=== PATIENT | male | born 1965 | race American Indian/Alaskan Native ===

== ENCOUNTER 2017-01-30 13:20 | Emergency (ER) | payer MEDICAID, OTHER ==
[2017-01-30 13:20] VITALS: BMI 25.7
[2017-01-30 13:43] VITALS: TEMP 98.3
--- NOTE | 2017-01-30 14:38 | C.PDOC ---
History Of Present Illness 51 year old male, whose past medical history includes hypertension, presents to the emergency department for a growth on the occipital scalp, which began about 3 months ago. The patient reports there is no pain, discharge, or bleeding , and he denies any trauma /injury to the area. The patient also denies headaches, fever, visual changes, dizziness, chest pain, SOB. Patient admits he was diagnosed with HTN 2 years ago, but has not taken any medications for it. Time Seen by Provider: 01/30/17 14:17 Chief Complaint (Nursing): Abnormal Skin Integrity History Per: Patient History/Exam Limitations: no limitations Onset/Duration Of Symptoms: Other (x 3 months ) Current Symptoms Are (Timing): Still Present Quality Of Symptoms: denies: Painful, Draining Severity: Mild Past Medical History Reviewed: Historical Data Vital Signs: Last Vital Signs Temp 98.3 F 01/30/17 13:40 Pulse 91 H 01/30/17 14:45 Resp 18 01/30/17 14:45 BP 162/110 H 01/30/17 15:11 Pulse Ox 97 01/30/17 16:44 - Medical History PMH: HTN Family History: States: No Known Family Hx - Social History Hx Tobacco Use: Yes Hx Alcohol Use: Yes Hx Substance Use: No - Immunization History Hx Tetanus Toxoid Vaccination: No Hx Influenza Vaccination: No Hx Pneumococcal Vaccination: No Review Of Systems Except As Marked, All Systems Reviewed And Found Negative. Constitutional: Negative for: Fever, Other (No bleeding, drainage) Eyes: Negative for: Vision Change Cardiovascular: Negative for: Chest Pain, Palpitations Respiratory: Negative for: Shortness of Breath Gastrointestinal: Negative for: Abdominal Pain Neurological: Negative for: Weakness, Numbness, Altered Mental Status, Headache , Dizziness Physical Exam - Physical Exam Appears: Well, Non-toxic, No Acute Distress Skin: Normal Color, Warm, Dry Head: Atraumatic, Normacephalic, Other (Left occipital scalp approx 3 cm lipoma ; no erythema; no discharge; no TTP) Eye(s): bilateral: Normal Inspection, PERRL, EOMI Nose: Normal Neck: Normal, Normal ROM Cardiovascular: Rhythm Regular Respiratory: Normal Breath Sounds, No Rales, No Rhonchi, No Wheezing Extremity: Normal ROM Neurological/Psych: Oriented x3, Normal Speech, Normal Cognition Gait: Steady ED Course And Treatment O2 Sat by Pulse Oximetry: 97 (RA) Pulse Ox Interpretation: Normal Progress Note: Explained to patient that this growth likely is a lipoma, and that it will need to be evaluated and removed by a surgeon. Patient given 1 dose lisinopril in the ED, and Rx for same. He was instructed to follow up with PMD/clinic in 1-2 days, and with general surgeon within 1 week. Patient instructed to return to ED if symptoms worsen. Reevaluation Time: 15:00 Reassessment Condition: Improved (Patient reassessed, is resting comfortably and BP is improving) Disposition Counseled Patient/Family Regarding: Diagnosis, Need For Followup, Rx Given - Disposition Referrals: [facility] at [facility] [Outside] Archie Ken MD [Staff Provider] - Disposition: HOME/ ROUTINE Disposition Time: 15:00 Condition: STABLE Additional Instructions: FOLLOW UP WITH MEDICAL AND SURGICAL CLINIC WITHIN 1 WEEK USE MEDICATION DAILY AVOID SALTY FOODS RETURN TO ER IF SYMPTOMS WORSEN Prescriptions: Lisinopril [Prinivil] 20 mg PO DAILY #30 tablet Instructions: Lipoma (ED), Hypertension (ED) Forms: [employer] (Polish) Print Language: PORTUGUESE - POA Present On Arrival: None - Clinical Impression Clinical Impression: Lipoma of scalp, Hypertension - Scribe Statement The provider has reviewed the documentation as recorded by the Scribbrittanie Sol All medical record entries made by the Scribe were at my direction and personally dictated by me. I have reviewed the chart and agree that the record accurately reflects my personal performance of the history, physical exam, medical decision making, and the department course for this patient. I have also personally directed, reviewed, and agree with the discharge instructions and disposition.
[2017-01-30 14:45] VITALS: PULSE 91; RESP 18
[2017-01-30 15:11] VITALS: BP 162/110
[2017-01-30 16:36] VITALS: O2SAT 97
== END 2017-01-30 15:11 | disposition home or self-care (01) ==
LOC: C.ER 13:20
DX: I10 Essential (primary) hypertension (principal); D17.0 Benign lipomatous neoplasm of skin and subcutaneous tissue of head, face and neck

== ENCOUNTER 2017-05-17 15:52 | Emergency (ER) | payer MEDICAID ==
[2017-05-17 15:53] VITALS: BMI 34.2
[2017-05-17 16:03] VITALS: TEMP 97.8
--- NOTE | 2017-05-17 16:07 | C.PDOC ---
History Of Present Illness 52 y/o male presents to ED sent from clinic for high blood pressure noted. Patient states he went to clinic for mass on back of head he has had for 1 year and for mild blurred vision. Patient denies loc, direct injury, vomiting, nausea or any other complaints at this time. Time Seen by Provider: 05/17/17 15:55 Chief Complaint (Nursing): Dizziness/Lightheaded History Per: Patient History/Exam Limitations: no limitations Onset/Duration Of Symptoms: Days Current Symptoms Are (Timing): Still Present Past Medical History Reviewed: Historical Data, Nursing Documentation, Vital Signs Vital Signs: Last Vital Signs Temp 97.8 F 05/17/17 15:58 Pulse 76 05/17/17 18:10 Resp 20 05/17/17 18:10 BP 135/94 H 05/17/17 18:10 Pulse Ox 96 05/17/17 18:10 - Medical History PMH: HTN Surgical History: No Surg Hx Family History: States: No Known Family Hx - Social History Hx Tobacco Use: Yes Hx Alcohol Use: Yes Hx Substance Use: No - Immunization History Hx Tetanus Toxoid Vaccination: No Hx Influenza Vaccination: No Hx Pneumococcal Vaccination: No Review Of Systems Constitutional: Negative for: Fever, Chills Eyes: Positive for: Vision Change Cardiovascular: Negative for: Chest Pain Respiratory: Negative for: Shortness of Breath Gastrointestinal: Negative for: Nausea, Vomiting Skin: Negative for: Rash Neurological: Positive for: Dizziness. Negative for: Weakness, Numbness Physical Exam - Physical Exam Appears: Non-toxic, No Acute Distress Skin: Normal Color, Warm, Dry, No Rash Head: Normacephalic, Other (subcutaneous mass to posterior left side of head) Eye(s): bilateral: Normal Inspection, PERRL, EOMI Oral Mucosa: Moist Neck: Normal ROM, Supple Cardiovascular: Rhythm Regular Respiratory: Normal Breath Sounds, No Rales, No Rhonchi, No Wheezing Gastrointestinal/Abdominal: Soft, No Tenderness, No Guarding, No Rebound Back: No CVA Tenderness Extremity: Normal ROM, Capillary Refill (<2 seconds) Neurological/Psych: Oriented x3, Normal Speech, Normal Motor, Normal Sensation ED Course And Treatment O2 Sat by Pulse Oximetry: 95 (RA) Pulse Ox Interpretation: Normal Disposition - Disposition Disposition: HOME/ ROUTINE Disposition Time: 18:20 Condition: IMPROVED Prescriptions: cloNIDine [Catapres] 0.2 mg PO BID #30 tab Forms: [employer] (Nicaraguan) - Clinical Impression Clinical Impression: Hypertension - Scribe Statement The provider has reviewed the documentation as recorded by the Byronibbrittanie Catherine All medical record entries made by the Scribe were at my direction and personally dictated by me. I have reviewed the chart and agree that the record accurately reflects my personal performance of the history, physical exam, medical decision making, and the department course for this patient. I have also personally directed, reviewed, and agree with the discharge instructions and disposition.
[2017-05-17 18:11] VITALS: BP 135/94; PULSE 76; RESP 20
[2017-05-17 18:21] VITALS: O2SAT 95
--- NOTE | 2017-05-18 12:20 | CARD ---
APPROVED REPORT EKG Measurement Heart [id number] <Conclusion> Normal sinus rhythm Voltage criteria for left ventricular hypertrophy Abnormal ECG
== END 2017-05-17 18:29 | disposition home or self-care (01) ==
LOC: C.ER 15:52
DX: I10 Essential (primary) hypertension (principal); Z87.891 Personal history of nicotine dependence

== ENCOUNTER 2017-10-02 07:27 | Day surgery (SDC) | payer MEDICAID ==
[2017-10-02 07:56] VITALS: BMI 34.3
[2017-10-02 10:04] VITALS: TEMP 97.1
[2017-10-02 13:57] VITALS: BP 141/95; PULSE 68; RESP 15; O2SAT 97
== END 2017-10-02 13:54 | disposition home or self-care (01) ==
LOC: C.ENDO 07:27
PROVIDERS: ATTEND Internal Medicine Gastroenterology
DX: Z12.11 Encounter for screening for malignant neoplasm of colon (principal); K64.8 Other hemorrhoids; I10 Essential (primary) hypertension; E78.5 Hyperlipidemia, unspecified

== ENCOUNTER 2017-12-12 09:26 | Day surgery (SDC) | payer MEDICAID ==
[2017-10-23 09:30] VITALS: BMI 35.6
[2017-12-12] MEDS ORDERED: Bupivacaine 0.25% 20 ML INJ IJ ONE (11:43)
[2017-12-12] MEDS ORDERED: Lidocaine Hydrochloride 0 ML INJ ONE (11:43)
[2017-12-12] MEDS ORDERED: Lidocaine/Epinephrine 1% 1:100000 10 ML IJ ONE (11:44)
[2017-12-12] MEDS ORDERED: ceFAZolin IV 2 gm in Dextrose 2 GM/50 ML BAG IVPB ONE (11:54)
[2017-12-12] MEDS ORDERED: Propofol 10 mg/ml Inj (20 ML) ONE ×2 (12:08→13:10)
[2017-12-12] MEDS ORDERED: Midazolam 2 MG/2 ML VIAL ONE ×2 (12:10→12:46)
[2017-12-12] MEDS ORDERED: Neostigmine Methylsulfate 3mg/3ml Syringe IV ONE (12:21)
[2017-12-12] MEDS ORDERED: HYDROmorphone 0.5 mg/0.5 ml ISec IVP PRN (13:24)
[2017-12-12] MEDS ORDERED: Lactated Ringer's 1,000 ML IV ONE (14:29)
--- NOTE | 2017-12-12 14:32 | PCM.SURG1 ---
Surgeon's Initial Post Op Note - Surgeon's Notes Surgeon: Dr. Chanda Flores Jet Wiper: Mitch Padilla PGY1, Clay Rsos OMS3 Type of Anesthesia: General Endo Pre-Operative Diagnosis: Soft Tissue Mass of the Scalp Operative Findings: Lipoma Post-Operative Diagnosis: Same Operation Performed: Excision of soft tissue mass of the scalp Specimen/Specimens Removed: Lipoma Estimated Blood Loss: EBL {In ML}: 20 Blood Products Given: N/A Drains Used: No Drains Date of Surgery/Procedure: 12/12/17 Time of Surgery/Procedure: 14:32
[2017-12-12 16:33] VITALS: RESP 16
[2017-12-12] MEDS ORDERED: Oxycodone/Acetaminophen 5/325 mg Tab PO PRN (16:49)
[2017-12-12 17:03] VITALS: O2SAT 95
[2017-12-12 18:08] VITALS: BP 137/87; PULSE 100; TEMP 97.8
--- NOTE | 2017-12-12 19:41 | PCM.OP ---
Operative Report - Operative Report Date of Surgery/Procedure: 12/12/17 Time of Surgery/Procedure: 12:45 Surgeon: Chanda Flores MD Senior Quality Manager: Mitch Webster DO (PGY 1 resident) Anesthesia/Sedation: General endotracheal; 1% lidocaine with epinephrine+ 0.25 % marcarine local mix Pre-Operative Diagnosis: Left head/scalp mass, 7.5cm x 8cm. Morbid Obesity. BMI 36 Post-Operative Diagnosis: Left head/scalp lipomatous mass. Morbid Obesity. BMI 36 Indication for Surgery: The patient is a 52-year-old male with history of a lump on left lateral posterior head noted several years ago. It has slowly grown , become bothersome with wearing clothing and wishes to have this removed for symptoms and also for cosmetic reasons. Details of HPI as documented in patient s chart. All potential risks, benefits, and complications of the procedure were discussed with the patient, and informed consent was obtained prior to the operation. Operative Findings: A 6x5cm bilobed mass of adipose tissue most likely representing a lipoma was found in the patients left scalp in parieto- occipital region. Procedure/Operation Description: PROCEDURE PERFORMED: 1. Excision of lipomatous soft tissue mass of left head/ scalp; 2. Layered wound closure. DETAILS OF OPERATION: Patient was taken to operating room. General endotracheal intubation performed by anesthesia on [facility] and patient safely transferred over to operating table in prone position. Foam padding provided for face, and separate bolster padding for hips and torso. Pillow place under legs and pressure points padded. Arms placed in neutral position on arms boards with elbows slightly flexed and fingers pointed toward head of bed. A safety strap was then placed across the mid thighs and tape across calves for securing patient. 2 grams of Ancef was given within 30 minutes prior to incision. SCDs were placed for thromboprophylaxis. No hair removal performed with shaver. Patient head turned slightly to face right. Left lateral and posterior head and neck prepped and draped in sterile fashion. A time out was performed prior to incision. The borders of the soft tissue mass were marked with marker. Next, approximately 10cc of 1% lidocaine with epinephrine mixed with 0.25% Marcaine was used to locally anesthetize the skin directly over the mass. A #10 blade scalpel was utilized to make an approximately 5-6cm elliptical incision over the soft tissue mass in transverse orientation. Elliptical incision made for cosmesis of closure. Upon incising the skin and the subcutaneous tissue readily , and there was the fatty tissue mass. The mass was circumferentially dissected using a combination of blunt, sharp and electrocautery dissection. Further details per operative findings section. The mass was removed in its entirety, appeared benign and was sent to permanent pathology. The wound was then copiously irrigated, and Hemostasis was obtained. Additional local anesthesia (10mL) was injected into the deeper layer of tissue. The wound was closed in multiple layers to obliterate the large wound cavity. #2-0 Vicryl running sutures used to re-approximate muscle overlying calvarium, followed by 3 -) interrupted Vicryl suture for deep dermal and sub cutaneous tissue, and finally skin closed using running 4-0 Monocryl. 10mL of local anesthesia was again given into the skin around the incision and finally Dermabond was applied. Once dry a pressure dressing was applied with 4x4 gauze and tape. The patient was rolled from OR table to [facility] from prone to supine position without incident. Once safely transferred to [facility], he was extubated in the OR and taken to recovery in stable condition. I was present for the entirety of the operation. Sponge needle, and instrument counts were correct. Estimated Blood Loss: 20 Drains: none Complications: none Specimen: Left head lipoma Discharge & Condition: to recovery in stable condition.
== END 2017-12-12 18:09 | disposition home or self-care (01) ==
LOC: C.SDS 09:26
PROVIDERS: ATTEND Surgery
DX: D17.0 Benign lipomatous neoplasm of skin and subcutaneous tissue of head, face and neck (principal); E66.01 Morbid (severe) obesity due to excess calories; Z68.36 Body mass index [BMI] 36.0-36.9, adult
CPT/HCPCS: 11426; 12032; J0690; J1170; J2250; J2704; J2710; J3010; J7120